=== PATIENT | male | born 1980 | race Caucasian/White ===

== ENCOUNTER → 2018-01-24 | Outpatient (CLI) | payer BC ==
--- NOTE | 2018-01-24 13:32 | CT ---
EXAMINATION TYPE: CT sinus wo con DATE OF EXAM: 01/24/2018 COMPARISON: NONE HISTORY: Chronic sinusitis. CT DLP: [address] of the paranasal sinuses was performed in the axial and coronal planes. Bone and soft tissue settings are submitted. The paranasal sinuses demonstrate normal aeration and development. Moderate opacification right maxillary sinus. Scattered ethmoid air cells demonstrate opacification a s well. Left ostiomeatal unit is patent. Mild mucosal thickening left maxillary sinus. Mild left fron klever chronic sinusitis. Sphenoid sinuses well aerated. The nasal septum is midline. No bony destructive changes are seen within the field of view. IMPRESSION: Changes of chronic sinusitis as noted. Obstruction left ostiomeatal unit.
== END | disposition home or self-care (01) ==
LOC: RADCTMAIN 13:07
PROVIDERS: ATTEND Family Medicine
DX: J32.1 Chronic frontal sinusitis (principal); J34.89 Other specified disorders of nose and nasal sinuses
CPT/HCPCS: 70486